=== PATIENT | female | born 1975 ===

== ENCOUNTER 2020-09-22 14:46 | Emergency (ER) | payer SELFPAY ==
[~2020-09-22] VITALS: Ht 172.7 cm; Wt 55.0 kg
[2020-09-22 15:51] VITALS: BP 125/75
--- NOTE | 2020-09-22 19:43 | NUR ---
strand forming machine operator: CHARLINE @150.
--- NOTE | 2020-09-22 20:12 | NUR ---
word processor: CHARLINE @2011
--- NOTE | 2020-09-22 20:39 | NUR ---
applications scientist: CHARLINE @ [phone]
== END 2020-09-22 20:40 | disposition left against medical advice (07) ==
LOC: ED 15:00
DX: R10.12 Left upper quadrant pain (principal)
CPT/HCPCS: 99281